=== PATIENT | male | born 1945 | race African-American/Black ===

== ENCOUNTER 2021-03-29 14:31 | Inpatient (IN) | payer MEDICARE, MEDICAID ==
[~2021-03-29] VITALS: Ht 175.3 cm; Wt 78.5 kg
[2021-03-29] MEDS ORDERED: SODIUM CHLORIDE 0.9% 500 ML IV ONE (16:30)
[2021-03-29 16:33] LABS: CHLORIDE 109 mEq/L (98-107)
[2021-03-29 16:37] LABS: BASOPHILS % 0.3 % (0.0-2.0); EOSINOPHILS % 3.3 % (0.0-5.0); HEMATOCRIT. 39.2 % (42.0-52.0); HEMOGLOBIN. 12.5 g/dL (14.0-18.0); LYMPHOCYTES % 43.4 % (20.0-50.0); MEAN CORPUSCULAR HEMOGLOBIN 29.8 pg (28.0-32.0); MEAN CORPUSCULAR VOLUME 93.4 fL (80.0-94.0); MEAN PLATELET VOLUME 9.8 fl (7.4-10.4); MONOCYTES % 11.3 % (2.0-8.0); NEUTROPHILS % 41.7 % (40.0-76.0); PLATELET 179 x1000/uL (130-400); RED BLOOD CELL COUNT 4.19 mill/uL (4.7-6.1); RED CELL DISTRIBUTION WIDTH 15.1 % (11.6-14.6)
[2021-03-29 16:38] LABS: PHOSPHORUS 2.9 mg/dL (2.5-4.9)
[2021-03-29] MEDS ORDERED: ACETAMINOPHEN 325MG TABLET PO PRN ×2 (21:15)
[2021-03-29] MEDS ORDERED: GUAIFENESIN 200MG/10ML SUGAR FREE UDC PO PRN (21:15)
[2021-03-29] MEDS ORDERED: TRAMADOL 50MG TABLET PO PRN (21:15)
[2021-03-29] MEDS ORDERED: HYDRALAZINE 20MG/ML VIAL IV PRN (21:15)
[2021-03-29] MEDS ORDERED: MAGNESIUM/ALUMINUM HYDROXIDE/SIMETHICONE 30ML UDC PO PRN (21:15)
[2021-03-29] MEDS ORDERED: ONDANSETRON HCL 4MG/2ML INJ IV PRN (21:15)
[2021-03-29 21:30] VITALS: BP 128/67
[2021-03-29] MEDS: ENOXAPARIN 40MG/0.4ML SYR SUBCUT SCH ×2 (22:00→22:34)
[2021-03-29] MEDS: SODIUM CHLORIDE 0.9% INJ 3ML FLUSH IVF SCH (22:34)
[2021-03-30] VITALS: BP 122/58
[2021-03-30] MEDS ORDERED: CLOP75TA33 PO (00:30)
[2021-03-30] MEDS ORDERED: LINA145C PO (00:32)
[2021-03-30] MEDS ORDERED: ISOS60TA76 PO (00:34)
[2021-03-30] MEDS ORDERED: PREG75CA PO (00:36)
[2021-03-30] MEDS ORDERED: CETI-338 PO (00:38)
[2021-03-30] MEDS ORDERED: COLC0.6C3 PO (00:38)
[2021-03-30] MEDS ORDERED: TAMS-11 PO (00:41)
[2021-03-30] MEDS ORDERED: CARV12.545 PO (00:44)
[2021-03-30] MEDS ORDERED: METF-414 PO (00:45)
[2021-03-30] MEDS ORDERED: ALBU6.7H9 INH (00:49)
[2021-03-30] MEDS ORDERED: FLUT1DIS3 INH (00:50)
[2021-03-30 04:00] VITALS: BP 118/50
[2021-03-30] MEDS: SODIUM CHLORIDE 0.9% INJ 3ML FLUSH IVF SCH ×3 (06:19→21:56)
[2021-03-30 08:00] VITALS: BP 147/70
[2021-03-30 12:00] VITALS: BP 160/77
[2021-03-30] MEDS ORDERED: NALOXONE HCL 0.4MG/ML VIAL IV PRN (15:00)
[2021-03-30 16:00] VITALS: BP 160/69
[2021-03-30] MEDS ORDERED: MAGNESIUM 2 G PREMIX 50 ML IV NR (17:00)
[2021-03-30 20:00] VITALS: BP 167/75
[2021-03-30] MEDS: ATORVASTATIN CALCIUM 40MG TABLET PO SCH (21:55)
[2021-03-30] MEDS: ENOXAPARIN 40MG/0.4ML SYR SUBCUT SCH (21:56)
[2021-03-31] VITALS (16 sets, daily range): BP systolic 101–148; BP diastolic 58–102
[2021-03-31] MEDS: SODIUM CHLORIDE 0.9% INJ 3ML FLUSH IVF SCH ×3 (05:57→22:12)
[2021-03-31] MEDS ORDERED: HEPARIN SODIUM 1,000 UNIT/1ML VIAL IV ONE (08:36)
[2021-03-31] MEDS ORDERED: IODIXANOL 320MG/ML 100 ML BOTTLE IV ONE (08:38)
[2021-03-31] MEDS ORDERED: LIDOCAINE HCL 1% 10 MG/ML 10ML VIAL ONE (08:38)
[2021-03-31] MEDS ORDERED: VERAPAMIL HCL 2.5 MG/1 ML 2ML VIAL IV ONE (08:49)
[2021-03-31] MEDS ORDERED: MIDAZOLAM HCL 2 MG/2 ML VIAL ONE (08:49)
[2021-03-31] MEDS ORDERED: FENTANYL CITRATE/PF 50MCG/ML 2ML VIAL ONE (08:49)
[2021-03-31] MEDS ORDERED: CLOPIDOGREL 75MG TABLET PO SCH (09:00)
[2021-03-31] MEDS ORDERED: ATROPINE SULFATE 1MG/10ML SYR IV PRN (10:00)
[2021-03-31] MEDS ORDERED: NITROGLYCERIN 0.4MG TABLET SL SL PRN (10:15)
[2021-03-31] MEDS ORDERED: ACETAMINOPHEN 325MG TABLET PO PRN (10:15)
[2021-03-31] MEDS ORDERED: FUROSEMIDE 40MG/4ML VIAL IVP NR (10:45)
[2021-03-31] MEDS: ASPIRIN 81MG TABLET PO SCH (11:04)
[2021-03-31] MEDS: AMLODIPINE 5MG TABLET PO SCH (11:05)
[2021-03-31] MEDS ORDERED: ENOXAPARIN 80MG/0.8ML SYR SUBCUT SCH (12:00)
[2021-03-31] MEDS ORDERED: MAGNESIUM 4 G PREMIX 100 ML IV NR (12:00)
[2021-03-31] MEDS ORDERED: EPOETIN ALFA-EPBX 10,000 UNIT/ML VIAL SUBCUT SCH (13:00)
[2021-03-31] MEDS ORDERED: DEXTROSE 50% WATER 50ML SYRINGE IV PRN (17:45)
[2021-03-31] MEDS ORDERED: DIPHENHYDRAMINE 25MG CAPSULE PO PRN (21:00)
[2021-03-31] MEDS ORDERED: BISACODYL 10MG SUPP PR PRN (21:00)
[2021-03-31] MEDS ORDERED: ASCORBIC ACID 500 MG TABLET PO SCH (21:00)
[2021-03-31] MEDS ORDERED: CHLORHEXIDINE GLUCONATE 4% EXTERNAL USE TOP SCH (21:00)
[2021-03-31] MEDS ORDERED: DOCUSATE SODIUM 100MG CAPSULE PO SCH (21:00)
[2021-03-31] MEDS: ALLOPURINOL 300 MG TABLET PO SCH (22:11)
[2021-03-31] MEDS: ATORVASTATIN CALCIUM 40MG TABLET PO SCH (22:11)
[2021-04-01] VITALS (35 sets, daily range): BP systolic 102–168; BP diastolic 43–84
[2021-04-01] MEDS: ALLOPURINOL 300 MG TABLET PO SCH (05:34)
[2021-04-01] MEDS: SODIUM CHLORIDE 0.9% INJ 3ML FLUSH IVF SCH ×3 (05:34→21:00)
[2021-04-01 05:35] LABS: CHLORIDE 101 mEq/L (98-107)
[2021-04-01] MEDS ORDERED: FUROSEMIDE 40MG/4ML VIAL IVP NR (06:00)
[2021-04-01 06:34] LABS: BASOPHILS % 0.2 % (0.0-2.0); EOSINOPHILS % 1.3 % (0.0-5.0); LYMPHOCYTES % 26.2 % (20.0-50.0); MEAN CORPUSCULAR HEMOGLOBIN 30.4 pg (28.0-32.0); MEAN CORPUSCULAR VOLUME 91.9 fL (80.0-94.0); MEAN PLATELET VOLUME 9.7 fl (7.4-10.4); MONOCYTES % 11.2 % (2.0-8.0); NEUTROPHILS % 61.1 % (40.0-76.0); PLATELET 183 x1000/uL (130-400); RED CELL DISTRIBUTION WIDTH 15.2 % (11.6-14.6)
[2021-04-01 06:48] LABS: HEMATOCRIT. 44.2 % (42.0-52.0); HEMOGLOBIN. 14.6 g/dL (14.0-18.0)
[2021-04-01] MEDS ORDERED: ALBUMIN HUMAN 25GM/100ML (25%) IV ONE (08:13)
[2021-04-01] MEDS ORDERED: POTASSIUM CHLORIDE 40MEQ/20ML INJ IV ONE (08:13)
[2021-04-01] MEDS ORDERED: HEPARIN 10,000 UNITS/ML VIAL ONE (08:13)
[2021-04-01] MEDS ORDERED: MAGNESIUM SULFATE 5GM/10ML VIAL IV ONE (08:13)
[2021-04-01] MEDS: ASPIRIN 81MG TABLET PO SCH ×2 (08:21→21:00)
[2021-04-01] MEDS: AMLODIPINE 5MG TABLET PO SCH (08:22)
[2021-04-01] MEDS ORDERED: ISOSORBIDE MONONITRATE 30MG TABLET SR 24HR PO SCH (09:00)
[2021-04-01] MEDS ORDERED: CHLORHEXIDINE GLUCONATE 4% EXTERNAL USE TOP SCH (09:00)
[2021-04-01] MEDS ORDERED: DOPAMINE 400MG/250ML PREMIX 0 ML IV ONE (10:11)
[2021-04-01] MEDS ORDERED: HEPARIN 1000 UNITS/ML 10ML ONE ×2 (10:39→14:26)
[2021-04-01] MEDS ORDERED: SKIN ADHESIVE 0.7 GM EA TOP ONE ×2 (10:44→10:45)
[2021-04-01] MEDS ORDERED: BACITRACIN 15GM TUBE TOP ONE (10:44)
[2021-04-01] MEDS ORDERED: THROMBIN (BOVINE) 5000 UNITS/VIAL TOP ONE (10:45)
[2021-04-01] MEDS ORDERED: POLYMYXIN B SULFATE 500000 UNITS/VIAL ONE (10:45)
[2021-04-01] MEDS ORDERED: SODIUM CHLORIDE 0.9% INJ 10ML FLUSH IVF ONE (10:45)
[2021-04-01] MEDS ORDERED: INSULIN REGULAR (DRIP) 100 UNITS in SODIUM CHLORIDE 0.9% 99 ML IV PRN (12:00)
[2021-04-01] MEDS ORDERED: PAPAVERINE HCL 180MG in SODIUM CHLORIDE 0.9% 24ML IV PRN (12:00)
[2021-04-01] MEDS ORDERED: DOBUTAMINE 250 MG PREMIX 250 ML IV PRN (12:00)
[2021-04-01] MEDS ORDERED: DEL NIDO ELECTROLYTE-S(PH 7.4) 1,000 ML IV PRN ×2 (12:00)
[2021-04-01] MEDS ORDERED: CEFAZOLIN 2,000 MG in DEXT 5% WATER 100 ML IV PRN (12:00)
[2021-04-01] MEDS ORDERED: DOPAMINE 400 MG PREMIX 250 ML IV PRN (12:00)
[2021-04-01] MEDS ORDERED: NOREPINEPHRINE 8 MG in DEXT 5% WATER 242 ML IV PRN (12:00)
[2021-04-01] MEDS ORDERED: NICARDIPINE 40 MG/200 ML PREMIX 200 ML IV PRN (12:00)
[2021-04-01] MEDS ORDERED: EPINEPHRINE 5 MG in DEXT 5% WATER 245 ML IV PRN (12:00)
[2021-04-01] MEDS ORDERED: CEFAZOLIN 2,000 MG in DEXT 5% WATER 100 ML IV SCH (12:00)
[2021-04-01 12:50] LABS: PARTIAL THROMBOPLASTIN TIME 31.3 sec (23.4-31.0); PROTHROMBIN TIME 10.8 sec (9.6-11.0)
[2021-04-01] MEDS ORDERED: HYDROMORPHONE HCL/PF 2MG/ML (OR) ONE (13:02)
[2021-04-01] MEDS ORDERED: FUROSEMIDE 100MG/10ML VIAL ONE (13:41)
[2021-04-01] MEDS ORDERED: CALCIUM CHLORIDE 1GM/10ML SYR IV ONE (13:42)
[2021-04-01] MEDS ORDERED: VASOPRESSIN 20 UNIT/ML 1ML ONE (13:44)
[2021-04-01] MEDS ORDERED: SODIUM CHLORIDE 0.9% 10ML VIAL ONE (14:32)
[2021-04-01] MEDS ORDERED: DEXMEDETOMIDINE 400 MCG/100 ML 100 ML IV ONE (16:00)
[2021-04-01] MEDS ORDERED: KETOROLAC 30MG/ML VIAL ONE (16:12)
[2021-04-01] MEDS ORDERED: ONDANSETRON HCL 4MG/2ML INJ IV PRN (16:15)
[2021-04-01] MEDS ORDERED: ACETAMINOPHEN 325MG TABLET PO PRN (16:15)
[2021-04-01] MEDS ORDERED: CALCIUM CHLORIDE 5,000 MG in DEXT 5% WATER 500 ML IV PRN (16:15)
[2021-04-01] MEDS ORDERED: CALCIUM CHLORIDE 3,000 MG in DEXT 5% WATER 250 ML IV PRN (16:15)
[2021-04-01] MEDS ORDERED: OXYCODONE HCL/ACETAMINOPHEN 5/325MG TABLET PO PRN ×2 (16:15)
[2021-04-01] MEDS ORDERED: ALBUMIN HUMAN 12.5G/250ML (5%) IV PRN (16:15)
[2021-04-01] MEDS ORDERED: ALBUMIN HUMAN 25GM/100ML (25%) IV PRN (16:15)
[2021-04-01] MEDS ORDERED: MORPHINE SULFATE 2 MG/ML CPJ (NOT FOR IM USE) IV PRN (16:15)
[2021-04-01] MEDS ORDERED: MAGNESIUM 2 G PREMIX 50 ML IV PRN (16:15)
[2021-04-01] MEDS ORDERED: MAGNESIUM SULFATE 3 GM in DEXT 5% WATER 100 ML IV PRN (16:15)
[2021-04-01] MEDS ORDERED: KETOROLAC 15MG/ML VIAL IV PRN (16:15)
[2021-04-01] MEDS ORDERED: MAGNESIUM 1 G PREMIX 100 ML IV PRN (16:15)
[2021-04-01] MEDS ORDERED: KCL 10MEQ/50ML PREMIX 100 ML IV PRN (16:30)
[2021-04-01] MEDS ORDERED: DEXTROSE 50% WATER 50ML SYRINGE IV PRN ×2 (16:30)
[2021-04-01] MEDS ORDERED: KCL 10MEQ/50ML PREMIX 200 ML IV PRN (16:30)
[2021-04-01] MEDS ORDERED: KCL 10MEQ/50ML PREMIX 150 ML IV PRN (16:30)
[2021-04-01 16:54] LABS: BG BASE EXCESS -1.7 mmol/L (-2.0-2.0); BG CARBOXYHEMOGLOBIN 0.3 % (0.5-1.5); BG DEOXYHEMOGLOBIN 5.8 % (0.0-5.0); BG FRACTION INSPIRED OXYGEN 100; BG HCO3 ACT 24.9 mmol/L (22.0-26.0); BG METHEMOGLOBIN 0.1 % (0.0-1.5); BG OXYGEN SATURATION 94.2 % (92.0-98.5); BG OXYHEMOGLOBIN 93.8 % (94.0-97.0); BG PCO2 50.2 mmHg (35.0-45.0); BG PH 7.313 (7.350-7.450); BG PO2 81.8 mmHg (75.0-100.0); BG SAMPLE SITE ALINE; BG TOTAL HEMOGLOBIN 11.6 g/dL (12.0-18.0); BG VENT MODE MASK - NRB
[2021-04-01] MEDS: DOCUSATE SODIUM 100MG CAPSULE PO SCH (17:00)
[2021-04-01] MEDS ORDERED: INSULIN REGULAR (DRIP) 100 UNITS in SODIUM CHLORIDE 0.9% 100 ML IV SCH (17:00)
[2021-04-01] MEDS: BACITRACIN 15GM TUBE TOP SCH (17:00)
[2021-04-01] MEDS ORDERED: DOPAMINE 400MG/250ML PREMIX 250 ML IV PRN (17:00)
[2021-04-01] MEDS: BLOOD SUGAR DIAGNOSTIC STRIP TEST SCH ×8 (17:00→23:58)
[2021-04-01] MEDS: MAGNESIUM HYDROXIDE 400MG/5ML 30ML UDC PO SCH ×3 (17:00→23:51)
[2021-04-01 17:14] LABS: BASOPHILS % 0.2 % (0.0-2.0); EOSINOPHILS % 0.3 % (0.0-5.0); HEMATOCRIT. 32.2 % (42.0-52.0); HEMOGLOBIN. 10.6 g/dL (14.0-18.0); LYMPHOCYTES % 13.7 % (20.0-50.0); MEAN CORPUSCULAR HEMOGLOBIN 30.3 pg (28.0-32.0); MEAN CORPUSCULAR VOLUME 92.4 fL (80.0-94.0); MEAN PLATELET VOLUME 8.8 fl (7.4-10.4); NEUTROPHILS % 80.8 % (40.0-76.0); PLATELET 130 x1000/uL (130-400); RED BLOOD CELL COUNT 3.48 mill/uL (4.7-6.1); RED CELL DISTRIBUTION WIDTH 14.9 % (11.6-14.6)
[2021-04-01 17:17] LABS: CHLORIDE 109 mEq/L (98-107)
[2021-04-01 17:23] LABS: PHOSPHORUS 3.9 mg/dL (2.5-4.9)
[2021-04-01 17:24] LABS: INR 1.2; PROTHROMBIN TIME 12.4 sec (9.6-11.0)
[2021-04-01] MEDS: DEXT 5%/0.45% NACL 1000ML 1,000 ML IV SCH (17:38)
[2021-04-01] MEDS ORDERED: AMINOCAPROIC ACID XX SCH (18:30)
[2021-04-01] MEDS ORDERED: [UNRECOGNIZED DRUG - OTHER] XX SCH (18:30)
[2021-04-01] MEDS ORDERED: AMINOCAPROIC ACID 5,000 MG in SODIUM CHLORIDE 0.9% 250 ML IV NR (19:00)
[2021-04-01] MEDS ORDERED: PROTAMINE SULFATE 10MG/ML VIAL 25ML IV NR (19:00)
[2021-04-01] MEDS ORDERED: AMINOCAPROIC ACID 5,000 MG in SODIUM CHLORIDE 0.9% 250 ML IV SCH (20:00)
[2021-04-01] MEDS: CEFAZOLIN 1000MG PREMIX 50 ML IV SCH (21:00)
[2021-04-01] MEDS: ATORVASTATIN CALCIUM 40MG TABLET PO SCH (21:00)
[2021-04-01] MEDS: CLOPIDOGREL 75MG TABLET PO SCH (21:00)
[2021-04-01] MEDS: IPRATROPIUM/ALBUTEROL 0.5-3(2.5)MG/3ML NEB HHN SCH (21:12)
[2021-04-01 23:16] LABS: BASOPHILS % 0.1 % (0.0-2.0); HEMOGLOBIN. 10.6 g/dL (14.0-18.0); LYMPHOCYTES % 8.7 % (20.0-50.0); MEAN CORPUSCULAR HEMOGLOBIN 30.7 pg (28.0-32.0); MEAN CORPUSCULAR VOLUME 92.4 fL (80.0-94.0); MEAN PLATELET VOLUME 9.5 fl (7.4-10.4); MONOCYTES % 7.9 % (2.0-8.0); NEUTROPHILS % 83.3 % (40.0-76.0); PLATELET 137 x1000/uL (130-400); RED BLOOD CELL COUNT 3.47 mill/uL (4.7-6.1); RED CELL DISTRIBUTION WIDTH 14.9 % (11.6-14.6)
[2021-04-01 23:21] LABS: CHLORIDE 106 mEq/L (98-107)
[2021-04-02] VITALS (88 sets, daily range): BP systolic 83–177; BP diastolic 32–104
[2021-04-02] MEDS: IPRATROPIUM/ALBUTEROL 0.5-3(2.5)MG/3ML NEB HHN SCH ×5 (00:38→20:59)
[2021-04-02] MEDS: BLOOD SUGAR DIAGNOSTIC STRIP TEST SCH ×19 (01:00→20:35)
[2021-04-02] MEDS: MAGNESIUM HYDROXIDE 400MG/5ML 30ML UDC PO SCH ×6 (04:21→23:24)
[2021-04-02 04:57] LABS: HEMATOCRIT. 31.7 % (42.0-52.0); HEMOGLOBIN. 10.6 g/dL (14.0-18.0); MEAN CORPUSCULAR HEMOGLOBIN 30.8 pg (28.0-32.0); MEAN CORPUSCULAR VOLUME 92.4 fL (80.0-94.0); MEAN PLATELET VOLUME 9.9 fl (7.4-10.4); PLATELET 141 x1000/uL (130-400); RED BLOOD CELL COUNT 3.43 mill/uL (4.7-6.1); RED CELL DISTRIBUTION WIDTH 14.7 % (11.6-14.6)
[2021-04-02 05:06] LABS: CHLORIDE 106 mEq/L (98-107)
[2021-04-02] MEDS: CEFAZOLIN 1000MG PREMIX 50 ML IV SCH ×2 (05:06→13:01)
[2021-04-02] MEDS: SODIUM CHLORIDE 0.9% INJ 3ML FLUSH IVF SCH ×3 (05:06→21:18)
[2021-04-02] MEDS ORDERED: MAGNESIUM 2 G PREMIX 50 ML IV NR (06:30)
[2021-04-02] MEDS ORDERED: FUROSEMIDE 40MG/4ML VIAL IVP SCH (06:30)
[2021-04-02] MEDS: ASPIRIN 81MG TABLET PO SCH (08:28)
[2021-04-02] MEDS: CLOPIDOGREL 75MG TABLET PO SCH (08:28)
[2021-04-02] MEDS: DOCUSATE SODIUM 100MG CAPSULE PO SCH ×2 (08:29→16:28)
[2021-04-02] MEDS: BACITRACIN 15GM TUBE TOP SCH ×2 (08:35→16:28)
[2021-04-02 11:03] LABS: PLATELET ESTIMATE NORMAL
[2021-04-02] MEDS: DEXT 5%/0.45% NACL 1000ML 1,000 ML IV SCH (16:29)
[2021-04-02] MEDS: INSULIN LISPRO 100 UNITS/ML SUBCUT SCH ×2 (17:29→20:35)
[2021-04-02] MEDS ORDERED: DEXTROSE 50% WATER 50ML SYRINGE IV PRN (17:30)
[2021-04-02] MEDS: ATORVASTATIN CALCIUM 40MG TABLET PO SCH (20:34)
[2021-04-03] VITALS (10 sets, daily range): BP systolic 109–135; BP diastolic 59–96
[2021-04-03] MEDS: IPRATROPIUM/ALBUTEROL 0.5-3(2.5)MG/3ML NEB HHN SCH ×6 (00:06→20:00)
[2021-04-03] MEDS: MAGNESIUM HYDROXIDE 400MG/5ML 30ML UDC PO SCH ×3 (04:00→12:00)
[2021-04-03] MEDS: SODIUM CHLORIDE 0.9% INJ 3ML FLUSH IVF SCH ×3 (05:13→21:00)
[2021-04-03] MEDS: BLOOD SUGAR DIAGNOSTIC STRIP TEST SCH ×4 (06:51→20:30)
[2021-04-03] MEDS: INSULIN LISPRO 100 UNITS/ML SUBCUT SCH ×4 (07:20→20:30)
[2021-04-03] MEDS: DOCUSATE SODIUM 100MG CAPSULE PO SCH ×2 (08:12→17:00)
[2021-04-03] MEDS: CLOPIDOGREL 75MG TABLET PO SCH (08:26)
[2021-04-03] MEDS: ASPIRIN 81MG TABLET PO SCH (08:26)
[2021-04-03] MEDS: BACITRACIN 15GM TUBE TOP SCH ×2 (08:27→17:00)
[2021-04-03 08:30] LABS: BASOPHILS % 0.1 % (0.0-2.0); EOSINOPHILS % 0.2 % (0.0-5.0); HEMATOCRIT. 32.6 % (42.0-52.0); HEMOGLOBIN. 10.9 g/dL (14.0-18.0); LYMPHOCYTES % 16.3 % (20.0-50.0); MEAN CORPUSCULAR HEMOGLOBIN 31.1 pg (28.0-32.0); MEAN PLATELET VOLUME 10.4 fl (7.4-10.4); MONOCYTES % 11.9 % (2.0-8.0); NEUTROPHILS % 71.5 % (40.0-76.0); PLATELET 140 x1000/uL (130-400); RED BLOOD CELL COUNT 3.51 mill/uL (4.7-6.1); RED CELL DISTRIBUTION WIDTH 15.4 % (11.6-14.6)
[2021-04-03 09:12] LABS: CHLORIDE 101 mEq/L (98-107)
[2021-04-03] MEDS ORDERED: HALOPERIDOL LACTATE 5MG/ML VIAL IM PRN (12:45)
[2021-04-03] MEDS: DEXT 5%/0.45% NACL 1000ML 1,000 ML IV SCH (18:40)
[2021-04-03] MEDS: ATORVASTATIN CALCIUM 40MG TABLET PO SCH (20:30)
[2021-04-04] VITALS (10 sets, daily range): BP systolic 104–158; BP diastolic 56–94
[2021-04-04] MEDS: IPRATROPIUM/ALBUTEROL 0.5-3(2.5)MG/3ML NEB HHN SCH ×6 (00:48→21:02)
[2021-04-04] MEDS: BLOOD SUGAR DIAGNOSTIC STRIP TEST SCH ×4 (06:26→20:27)
[2021-04-04] MEDS: SODIUM CHLORIDE 0.9% INJ 3ML FLUSH IVF SCH ×3 (06:26→21:35)
[2021-04-04] MEDS: INSULIN LISPRO 100 UNITS/ML SUBCUT SCH ×4 (07:20→20:27)
[2021-04-04 08:33] LABS: BASOPHILS % 0.3 % (0.0-2.0); EOSINOPHILS % 0.8 % (0.0-5.0); HEMATOCRIT. 35.3 % (42.0-52.0); HEMOGLOBIN. 11.5 g/dL (14.0-18.0); LYMPHOCYTES % 21.8 % (20.0-50.0); MEAN CORPUSCULAR HEMOGLOBIN 30.4 pg (28.0-32.0); MEAN PLATELET VOLUME 9.7 fl (7.4-10.4); MONOCYTES % 13.8 % (2.0-8.0); NEUTROPHILS % 63.3 % (40.0-76.0); PLATELET 151 x1000/uL (130-400); RED BLOOD CELL COUNT 3.79 mill/uL (4.7-6.1); RED CELL DISTRIBUTION WIDTH 15.6 % (11.6-14.6)
[2021-04-04] MEDS: CLOPIDOGREL 75MG TABLET PO SCH (08:48)
[2021-04-04] MEDS: DOCUSATE SODIUM 100MG CAPSULE PO SCH ×2 (08:48→17:19)
[2021-04-04] MEDS: BACITRACIN 15GM TUBE TOP SCH ×2 (08:48→17:20)
[2021-04-04] MEDS: ASPIRIN 81MG TABLET PO SCH (08:48)
[2021-04-04 08:52] LABS: CHLORIDE 106 mEq/L (98-107)
[2021-04-04] MEDS ORDERED: AMIODARONE HCL 50MG/ML 3ML VIAL IV ONE (12:45)
[2021-04-04] MEDS ORDERED: AMIODARONE HCL 50MG/ML 9ML VIAL IV ONE (12:45)
[2021-04-04] MEDS ORDERED: MAGNESIUM 4 G PREMIX 100 ML IV NR (13:30)
[2021-04-04] MEDS ORDERED: AMIODARONE HCL 900 MG in DEXT 5% WATER 500 ML IV PRN (13:30)
[2021-04-04] MEDS ORDERED: AMIODARONE HCL 150 MG in DEXT 5% WATER 100 ML IV NR (13:30)
[2021-04-04] MEDS: AMIODARONE HCL 200 MG TABLET PO SCH ×2 (14:02→17:19)
[2021-04-04] MEDS: DEXT 5%/0.45% NACL 1000ML 1,000 ML IV SCH (18:08)
[2021-04-04] MEDS: ATORVASTATIN CALCIUM 40MG TABLET PO SCH (20:27)
[2021-04-05] VITALS (11 sets, daily range): BP systolic 115–135; BP diastolic 45–86
[2021-04-05] MEDS: IPRATROPIUM/ALBUTEROL 0.5-3(2.5)MG/3ML NEB HHN SCH ×6 (01:01→20:43)
[2021-04-05] MEDS: SODIUM CHLORIDE 0.9% INJ 3ML FLUSH IVF SCH ×3 (05:18→21:03)
[2021-04-05] MEDS: BLOOD SUGAR DIAGNOSTIC STRIP TEST SCH ×4 (06:15→20:48)
[2021-04-05] MEDS: INSULIN LISPRO 100 UNITS/ML SUBCUT SCH ×4 (07:20→20:48)
[2021-04-05] MEDS: AMIODARONE HCL 200 MG TABLET PO SCH ×2 (08:08→16:17)
[2021-04-05] MEDS: CLOPIDOGREL 75MG TABLET PO SCH (08:08)
[2021-04-05] MEDS: ASPIRIN 81MG TABLET PO SCH (08:08)
[2021-04-05] MEDS: DOCUSATE SODIUM 100MG CAPSULE PO SCH ×2 (08:08→16:17)
[2021-04-05] MEDS: BACITRACIN 15GM TUBE TOP SCH ×2 (08:09→16:18)
[2021-04-05] MEDS: ATORVASTATIN CALCIUM 40MG TABLET PO SCH (20:49)
== END 2021-04-05 21:48 | DRG 234 ==
LOC: ER 14:37 → 8WST 18:37 → ENRESERV 20:36 → 3WST 03-31 10:51 → CVICU 04-01 14:48 → 3WST 04-02 18:49
PROVIDERS: ADMIT Internal Medicine; ATTEND Internal Medicine
PROC: 4A023N7 Measurement of Cardiac Sampling and Pressure, Left Heart, Percutaneous Approach (ICD-10-PCS; principal; 2021-03-31)
PROC: B211YZZ Fluoroscopy of Multiple Coronary Arteries using Other Contrast (ICD-10-PCS; 2021-03-31)
PROC: 06BQ4ZZ Excision of Left Saphenous Vein, Percutaneous Endoscopic Approach (ICD-10-PCS; 2021-04-01)
PROC: 02100Z9 Bypass Coronary Artery, One Artery from Left Internal Mammary, Open Approach (ICD-10-PCS; 2021-04-01)
PROC: 021209W Bypass Coronary Artery, Three Arteries from Aorta with Autologous Venous Tissue, Open Approach (ICD-10-PCS; 2021-04-01)
DX: T82.855A Stenosis of coronary artery stent, initial encounter (principal); I25.110 Atherosclerotic heart disease of native coronary artery with unstable angina pectoris; I50.30 Unspecified diastolic (congestive) heart failure; I44.1 Atrioventricular block, second degree; D72.819 Decreased white blood cell count, unspecified; E11.9 Type 2 diabetes mellitus without complications; M06.9 Rheumatoid arthritis, unspecified; I11.0 Hypertensive heart disease with heart failure; I48.0 Paroxysmal atrial fibrillation; R00.1 Bradycardia, unspecified; M19.90 Unspecified osteoarthritis, unspecified site; G89.29 Other chronic pain; M54.50 Low back pain, unspecified; Z60.2 Problems related to living alone; Z20.822 Contact with and (suspected) exposure to COVID-19; Y83.1 Surgical operation with implant of artificial internal device as the cause of abnormal reaction of the patient, or of later complication, without mention of misadventure at the time of the procedure; Y92.89 Other specified places as the place of occurrence of the external cause; Z79.84 Long term (current) use of oral hypoglycemic drugs; Z86.73 Personal history of transient ischemic attack (TIA), and cerebral infarction without residual deficits; Z95.5 Presence of coronary angioplasty implant and graft; Z79.899 Other long term (current) drug therapy; Z28.3 Underimmunization status; Z79.82 Long term (current) use of aspirin; Z87.891 Personal history of nicotine dependence; G90.9 Disorder of the autonomic nervous system, unspecified
CPT/HCPCS: 36415; 36600; 71045; 80048; 82375; 82805; 82962; 83036; 83735; 84100; 84443; 84484; 85025; 85347; 86850; 86900; 86920; 87426; 88305; 93005; 93306; 93458; 93880; 93970; 97110; 97116; 97162; 97166; 97530; 97535; 99285; C1729; C1751; C1758; C1769; C1887; C1893; J0282; J0360; J0690; J0885; J1170; J1265; J1630; J1644; J1650; J1815; J1885; J1940; J2250; J2720; J3010; J3475; J3480; J3490; J7040; J7050; J7060; L3908; P9016; P9047; Q9957; Q9967

== ENCOUNTER 2021-04-05 21:48 | Inpatient (IN) | payer MEDICARE, MEDICAID ==
[~2021-04-05] VITALS: Ht 175.3 cm; Wt 81.4 kg
[~2021-04-05 21:48] MED LIST: ALBU6.7H9 INH; CARV12.545 PO; CETI-338 PO; CLOP75TA33 PO; COLC0.6C3 PO; FLUT1DIS3 INH; ISOS60TA76 PO; LINA145C PO; METF-414 PO; PREG75CA PO; TAMS-11 PO
[2021-04-05 21:55] VITALS: BP 130/76
[2021-04-05] MEDS ORDERED: HYDRALAZINE HCL 10MG TABLET PO PRN (22:45)
[2021-04-05] MEDS ORDERED: ONDANSETRON HCL 4MG TABLET PO PRN (22:45)
[2021-04-05] MEDS ORDERED: OXYCODONE HCL/ACETAMINOPHEN 5/325MG TABLET PO PRN (22:45)
[2021-04-05] MEDS ORDERED: NITROGLYCERIN 0.4MG TABLET SL SL PRN (22:45)
[2021-04-05] MEDS ORDERED: GUAIFENESIN 200MG/10ML SUGAR FREE UDC PO PRN (22:45)
[2021-04-05] MEDS ORDERED: HALOPERIDOL LACTATE 5MG/ML VIAL IM PRN (22:45)
[2021-04-05] MEDS ORDERED: NALOXONE HCL 0.4 MG/ML 1ML VIAL IV PRN (22:45)
[2021-04-06] MEDS: IPRATROPIUM/ALBUTEROL 0.5-3(2.5)MG/3ML NEB HHN SCH ×4 (02:58→22:12)
[2021-04-06] MEDS: INSULIN LISPRO 100 UNITS/ML SUBCUT SCH ×4 (06:28→20:55)
[2021-04-06] MEDS: BLOOD SUGAR DIAGNOSTIC STRIP TEST SCH ×4 (06:28→20:55)
[2021-04-06 08:00] VITALS: BP 122/59
[2021-04-06 09:26] VITALS: BP 122/59
[2021-04-06] MEDS: DOCUSATE SODIUM 100MG CAPSULE PO SCH ×2 (09:28→17:14)
[2021-04-06] MEDS: CLOPIDOGREL 75MG TABLET PO SCH (09:29)
[2021-04-06] MEDS: ASPIRIN 81MG TABLET PO SCH (09:29)
[2021-04-06] MEDS: AMIODARONE HCL 200 MG TABLET PO SCH ×2 (09:29→17:14)
[2021-04-06] MEDS: BACITRACIN 15GM TUBE TOP SCH ×2 (09:40→17:31)
[2021-04-06] MEDS: DEXTROSE 50% WATER 50ML SYRINGE IV PRN ×3 (18:08→21:00)
[2021-04-06 20:00] VITALS: BP 117/66
[2021-04-06] MEDS: ATORVASTATIN CALCIUM 40MG TABLET PO SCH (20:15)
[2021-04-07] MEDS: IPRATROPIUM/ALBUTEROL 0.5-3(2.5)MG/3ML NEB HHN SCH ×6 (01:23→21:42)
[2021-04-07] MEDS: BLOOD SUGAR DIAGNOSTIC STRIP TEST SCH ×4 (06:19→21:36)
[2021-04-07] MEDS: INSULIN LISPRO 100 UNITS/ML SUBCUT SCH ×4 (06:19→21:00)
[2021-04-07 08:00] VITALS: BP 125/88
[2021-04-07] MEDS: ASPIRIN 81MG TABLET PO SCH (09:42)
[2021-04-07] MEDS: DOCUSATE SODIUM 100MG CAPSULE PO SCH ×2 (09:43→18:20)
[2021-04-07] MEDS: CLOPIDOGREL 75MG TABLET PO SCH (09:43)
[2021-04-07] MEDS: AMIODARONE HCL 200 MG TABLET PO SCH ×2 (09:43→18:21)
[2021-04-07] MEDS: BACITRACIN 15GM TUBE TOP SCH ×2 (09:46→18:21)
[2021-04-07 20:00] VITALS: BP 134/55
[2021-04-07] MEDS ORDERED: SENNOSIDES 8.6MG TABLET PO PRN (21:00)
[2021-04-07] MEDS: ATORVASTATIN CALCIUM 40MG TABLET PO SCH (21:35)
[2021-04-07] MEDS: ACETAMINOPHEN 325MG TABLET PO PRN (21:55)
[2021-04-08] MEDS: IPRATROPIUM/ALBUTEROL 0.5-3(2.5)MG/3ML NEB HHN SCH ×5 (02:27→21:32)
[2021-04-08] MEDS: BLOOD SUGAR DIAGNOSTIC STRIP TEST SCH ×4 (05:34→20:31)
[2021-04-08] MEDS: INSULIN LISPRO 100 UNITS/ML SUBCUT SCH ×4 (05:35→20:31)
[2021-04-08 08:00] VITALS: BP 122/65
[2021-04-08] MEDS: BACITRACIN 15GM TUBE TOP SCH ×2 (09:00→17:00)
[2021-04-08] MEDS: ASPIRIN 81MG TABLET PO SCH (09:15)
[2021-04-08] MEDS: DOCUSATE SODIUM 100MG CAPSULE PO SCH ×2 (09:16→16:10)
[2021-04-08] MEDS: AMIODARONE HCL 200 MG TABLET PO SCH ×2 (09:16→16:10)
[2021-04-08] MEDS: CLOPIDOGREL 75MG TABLET PO SCH (09:16)
[2021-04-08 20:00] VITALS: BP 105/64
[2021-04-08] MEDS: ATORVASTATIN CALCIUM 40MG TABLET PO SCH (20:51)
[2021-04-09] MEDS: IPRATROPIUM/ALBUTEROL 0.5-3(2.5)MG/3ML NEB HHN SCH ×5 (00:44→21:14)
[2021-04-09] MEDS: BLOOD SUGAR DIAGNOSTIC STRIP TEST SCH ×4 (06:24→21:00)
[2021-04-09] MEDS: INSULIN LISPRO 100 UNITS/ML SUBCUT SCH ×4 (06:24→21:00)
[2021-04-09] MEDS: OXYCODONE HCL/ACETAMINOPHEN 5/325MG TABLET PO PRN (06:55)
[2021-04-09 07:22] LABS: CHLORIDE 107 mEq/L (98-107)
[2021-04-09 07:29] LABS: BASOPHILS % 0.4 % (0.0-2.0); EOSINOPHILS % 3.4 % (0.0-5.0); HEMATOCRIT. 30.7 % (42.0-52.0); HEMOGLOBIN. 10.3 g/dL (14.0-18.0); LYMPHOCYTES % 33.4 % (20.0-50.0); MEAN CORPUSCULAR HEMOGLOBIN 31.1 pg (28.0-32.0); MEAN PLATELET VOLUME 8.1 fl (7.4-10.4); MONOCYTES % 10.8 % (2.0-8.0); PLATELET 277 x1000/uL (130-400); RED CELL DISTRIBUTION WIDTH 15.1 % (11.6-14.6)
[2021-04-09 08:00] VITALS: BP 114/66
[2021-04-09] MEDS: DOCUSATE SODIUM 100MG CAPSULE PO SCH ×2 (09:22→18:01)
[2021-04-09] MEDS: ASPIRIN 81MG TABLET PO SCH (09:22)
[2021-04-09] MEDS: CLOPIDOGREL 75MG TABLET PO SCH (09:22)
[2021-04-09] MEDS: AMIODARONE HCL 200 MG TABLET PO SCH ×2 (09:22→18:01)
[2021-04-09] MEDS: BACITRACIN 15GM TUBE TOP SCH ×2 (09:23→18:01)
[2021-04-09 20:00] VITALS: BP 131/69
[2021-04-09] MEDS: ATORVASTATIN CALCIUM 40MG TABLET PO SCH (21:58)
[2021-04-10] MEDS: IPRATROPIUM/ALBUTEROL 0.5-3(2.5)MG/3ML NEB HHN SCH ×5 (02:40→22:00)
[2021-04-10] MEDS: BLOOD SUGAR DIAGNOSTIC STRIP TEST SCH ×4 (06:30→21:48)
[2021-04-10 08:00] VITALS: BP 126/64
[2021-04-10] MEDS: BACITRACIN 15GM TUBE TOP SCH ×2 (08:41→17:36)
[2021-04-10] MEDS: CLOPIDOGREL 75MG TABLET PO SCH (08:42)
[2021-04-10] MEDS: AMIODARONE HCL 200 MG TABLET PO SCH ×2 (08:42→17:36)
[2021-04-10] MEDS: ASPIRIN 81MG TABLET PO SCH (08:42)
[2021-04-10] MEDS: DOCUSATE SODIUM 100MG CAPSULE PO SCH ×2 (08:42→17:36)
[2021-04-10] MEDS: INSULIN LISPRO 100 UNITS/ML SUBCUT SCH ×4 (08:46→21:00)
[2021-04-10] MEDS: LACTULOSE 20G/30ML UDC PO PRN (13:46)
[2021-04-10] MEDS: DEXTROSE 50% WATER 50ML SYRINGE IV PRN (18:22)
[2021-04-10 20:00] VITALS: BP 114/55
[2021-04-10] MEDS ORDERED: OXYCODONE HCL/ACETAMINOPHEN 5/325MG TABLET PO PRN ×2 (20:00)
[2021-04-10] MEDS: ATORVASTATIN CALCIUM 40MG TABLET PO SCH (21:20)
[2021-04-11] MEDS: IPRATROPIUM/ALBUTEROL 0.5-3(2.5)MG/3ML NEB HHN SCH ×3 (02:50→21:20)
[2021-04-11] MEDS: LACTULOSE 20G/30ML UDC PO PRN (05:29)
[2021-04-11] MEDS: BLOOD SUGAR DIAGNOSTIC STRIP TEST SCH ×4 (06:28→21:49)
[2021-04-11] MEDS: INSULIN LISPRO 100 UNITS/ML SUBCUT SCH ×4 (06:29→21:00)
[2021-04-11 08:00] VITALS: BP 103/49
[2021-04-11] MEDS: ASPIRIN 81MG TABLET PO SCH (09:05)
[2021-04-11] MEDS: CLOPIDOGREL 75MG TABLET PO SCH (09:06)
[2021-04-11] MEDS: DOCUSATE SODIUM 100MG CAPSULE PO SCH ×2 (09:06→17:06)
[2021-04-11] MEDS: AMIODARONE HCL 200 MG TABLET PO SCH ×2 (09:06→17:06)
[2021-04-11] MEDS: BACITRACIN 15GM TUBE TOP SCH ×2 (09:11→18:00)
[2021-04-11] MEDS: DEXTROSE 50% WATER 50ML SYRINGE IV PRN (17:19)
[2021-04-11 20:00] VITALS: BP 143/66
[2021-04-11] MEDS: ATORVASTATIN CALCIUM 40MG TABLET PO SCH (21:49)
[2021-04-12] MEDS: IPRATROPIUM/ALBUTEROL 0.5-3(2.5)MG/3ML NEB HHN SCH ×5 (00:54→21:24)
[2021-04-12] MEDS: BLOOD SUGAR DIAGNOSTIC STRIP TEST SCH ×3 (06:55→17:14)
[2021-04-12 08:00] VITALS: BP 116/74
[2021-04-12] MEDS: BACITRACIN 15GM TUBE TOP SCH ×2 (09:00→17:13)
[2021-04-12] MEDS: INSULIN LISPRO 100 UNITS/ML SUBCUT SCH ×3 (09:00→17:00)
[2021-04-12] MEDS: ASPIRIN 81MG TABLET PO SCH (10:27)
[2021-04-12] MEDS: DOCUSATE SODIUM 100MG CAPSULE PO SCH ×2 (10:28→17:00)
[2021-04-12] MEDS: CLOPIDOGREL 75MG TABLET PO SCH (10:28)
[2021-04-12] MEDS: AMIODARONE HCL 200 MG TABLET PO SCH ×2 (10:28→17:13)
[2021-04-12 20:00] VITALS: BP 119/43
[2021-04-12] MEDS: ATORVASTATIN CALCIUM 40MG TABLET PO SCH (22:12)
[2021-04-13] MEDS: IPRATROPIUM/ALBUTEROL 0.5-3(2.5)MG/3ML NEB HHN SCH ×4 (01:01→11:01)
[2021-04-13 08:00] VITALS: BP 135/73
[2021-04-13] MEDS: AMIODARONE HCL 200 MG TABLET PO SCH ×2 (09:25→16:44)
[2021-04-13] MEDS: DOCUSATE SODIUM 100MG CAPSULE PO SCH ×2 (09:25→16:44)
[2021-04-13] MEDS: CLOPIDOGREL 75MG TABLET PO SCH (09:25)
[2021-04-13] MEDS: ASPIRIN 81MG TABLET PO SCH (09:25)
[2021-04-13] MEDS: BACITRACIN 15GM TUBE TOP SCH ×2 (09:26→16:49)
[2021-04-13 20:00] VITALS: BP 138/64
[2021-04-13] MEDS: ATORVASTATIN CALCIUM 40MG TABLET PO SCH (21:35)
[2021-04-14 08:00] VITALS: BP 125/67
[2021-04-14] MEDS: CLOPIDOGREL 75MG TABLET PO SCH (09:38)
[2021-04-14] MEDS: ASPIRIN 81MG TABLET PO SCH (09:38)
[2021-04-14] MEDS: DOCUSATE SODIUM 100MG CAPSULE PO SCH ×2 (09:38→16:38)
[2021-04-14] MEDS: OXYCODONE HCL/ACETAMINOPHEN 5/325MG TABLET PO PRN (09:40)
[2021-04-14] MEDS: AMIODARONE HCL 200 MG TABLET PO SCH ×2 (09:40→16:38)
[2021-04-14] MEDS: BACITRACIN 15GM TUBE TOP SCH ×2 (09:41→16:41)
[2021-04-14 20:00] VITALS: BP 126/66
[2021-04-14] MEDS: IPRATROPIUM/ALBUTEROL 0.5-3(2.5)MG/3ML NEB HHN SCH (20:58)
[2021-04-14] MEDS: ATORVASTATIN CALCIUM 40MG TABLET PO SCH (21:47)
[2021-04-15] MEDS: IPRATROPIUM/ALBUTEROL 0.5-3(2.5)MG/3ML NEB HHN SCH ×4 (02:25→19:57)
[2021-04-15 08:00] VITALS: BP 117/63
[2021-04-15] MEDS: ASPIRIN 81MG TABLET PO SCH (08:57)
[2021-04-15] MEDS: AMIODARONE HCL 200 MG TABLET PO SCH ×2 (08:58→17:23)
[2021-04-15] MEDS: CLOPIDOGREL 75MG TABLET PO SCH (08:58)
[2021-04-15] MEDS: BACITRACIN 15GM TUBE TOP SCH ×2 (09:00→17:23)
[2021-04-15] MEDS: OXYCODONE HCL/ACETAMINOPHEN 5/325MG TABLET PO PRN (09:01)
[2021-04-15] MEDS: DOCUSATE SODIUM 100MG CAPSULE PO SCH ×2 (09:01→17:23)
[2021-04-15 20:00] VITALS: BP 129/60
[2021-04-15] MEDS: ATORVASTATIN CALCIUM 40MG TABLET PO SCH (21:06)
[2021-04-16] MEDS: IPRATROPIUM/ALBUTEROL 0.5-3(2.5)MG/3ML NEB HHN SCH ×3 (07:34→21:35)
[2021-04-16 08:19] VITALS: BP 132/71
[2021-04-16] MEDS: ASPIRIN 81MG TABLET PO SCH (10:38)
[2021-04-16] MEDS: AMIODARONE HCL 200 MG TABLET PO SCH ×2 (10:39→16:22)
[2021-04-16] MEDS: DOCUSATE SODIUM 100MG CAPSULE PO SCH ×2 (10:39→16:22)
[2021-04-16] MEDS: CLOPIDOGREL 75MG TABLET PO SCH (10:39)
[2021-04-16] MEDS: MAGNESIUM/ALUMINUM HYDROXIDE/SIMETHICONE 30ML UDC PO PRN (10:39)
[2021-04-16] MEDS: BACITRACIN 15GM TUBE TOP SCH ×2 (12:02→16:22)
[2021-04-16] MEDS: LACTULOSE 20G/30ML UDC PO PRN (16:23)
[2021-04-16 20:00] VITALS: BP 135/57
[2021-04-16] MEDS: ATORVASTATIN CALCIUM 40MG TABLET PO SCH (20:49)
[2021-04-17 08:00] VITALS: BP 137/68
[2021-04-17] MEDS: IPRATROPIUM/ALBUTEROL 0.5-3(2.5)MG/3ML NEB HHN SCH ×2 (08:00→14:00)
[2021-04-17] MEDS: ASPIRIN 81MG TABLET PO SCH (09:23)
[2021-04-17] MEDS: DOCUSATE SODIUM 100MG CAPSULE PO SCH ×2 (09:23→16:11)
[2021-04-17] MEDS: MAGNESIUM/ALUMINUM HYDROXIDE/SIMETHICONE 30ML UDC PO PRN (09:24)
[2021-04-17] MEDS: CLOPIDOGREL 75MG TABLET PO SCH (09:24)
[2021-04-17] MEDS: AMIODARONE HCL 200 MG TABLET PO SCH ×2 (09:24→16:11)
[2021-04-17] MEDS: ACETAMINOPHEN 325MG TABLET PO PRN (09:25)
[2021-04-17] MEDS: BACITRACIN 15GM TUBE TOP SCH ×2 (11:49→16:12)
[2021-04-17 20:00] VITALS: BP 125/66
[2021-04-17] MEDS: ATORVASTATIN CALCIUM 40MG TABLET PO SCH (20:06)
[2021-04-18] MEDS: IPRATROPIUM/ALBUTEROL 0.5-3(2.5)MG/3ML NEB HHN SCH ×2 (07:13→12:26)
[2021-04-18 08:00] VITALS: BP 116/51
[2021-04-18] MEDS: MAGNESIUM/ALUMINUM HYDROXIDE/SIMETHICONE 30ML UDC PO PRN (09:35)
[2021-04-18] MEDS: CLOPIDOGREL 75MG TABLET PO SCH (09:35)
[2021-04-18] MEDS: DOCUSATE SODIUM 100MG CAPSULE PO SCH (09:35)
[2021-04-18] MEDS: AMIODARONE HCL 200 MG TABLET PO SCH (09:35)
[2021-04-18] MEDS: ASPIRIN 81MG TABLET PO SCH (09:35)
[2021-04-18] MEDS: BACITRACIN 15GM TUBE TOP SCH (11:15)
[2021-04-18 13:39] VITALS: BP 116/51
== END 2021-04-18 14:55 | disposition home health service (06) | DRG 293 ==
LOC: 4WST 21:48
PROVIDERS: ADMIT Psychiatry & Neurology Neurology; ATTEND Internal Medicine
DX: I11.0 Hypertensive heart disease with heart failure (principal); I25.10 Atherosclerotic heart disease of native coronary artery without angina pectoris; M06.9 Rheumatoid arthritis, unspecified; I48.0 Paroxysmal atrial fibrillation; I50.30 Unspecified diastolic (congestive) heart failure; E11.9 Type 2 diabetes mellitus without complications; G89.29 Other chronic pain; M54.50 Low back pain, unspecified; F06.34 Mood disorder due to known physiological condition with mixed features; R00.1 Bradycardia, unspecified; G90.8 Other disorders of autonomic nervous system; M13.0 Polyarthritis, unspecified; Z95.1 Presence of aortocoronary bypass graft; Z95.5 Presence of coronary angioplasty implant and graft; Z79.899 Other long term (current) drug therapy; Z79.51 Long term (current) use of inhaled steroids; Z79.84 Long term (current) use of oral hypoglycemic drugs; I69.398 Other sequelae of cerebral infarction
CPT/HCPCS: 36415; 80053; 82962; 85025; 92523; 93970; 94640; 97110; 97112; 97116; 97150; 97162; 97166; 97530; 97535

== ENCOUNTER 2021-07-08 17:00 | Inpatient (IN) | payer MEDICARE, MEDICAID ==
[~2021-07-08] VITALS: Ht 175.3 cm; Wt 74.6 kg
[2021-07-08] MEDS ORDERED: SODIUM CHLORIDE 0.9% 1,000 ML IV ONE (17:45)
[2021-07-08 18:15] LABS: BASOPHILS % 0.7 % (0.0-2.0); EOSINOPHILS % 5.3 % (0.0-5.0); HEMATOCRIT. 37.2 % (42.0-52.0); HEMOGLOBIN. 12.2 g/dL (14.0-18.0); LYMPHOCYTES % 42.9 % (20.0-50.0); MEAN CORPUSCULAR HEMOGLOBIN 28.6 pg (28.0-32.0); MEAN CORPUSCULAR VOLUME 87.5 fL (80.0-94.0); MONOCYTES % 11.4 % (2.0-8.0); NEUTROPHILS % 39.7 % (40.0-76.0); PLATELET 219 x1000/uL (130-400); RED BLOOD CELL COUNT 4.25 mill/uL (4.7-6.1); RED CELL DISTRIBUTION WIDTH 18.6 % (11.6-14.6)
[2021-07-08 18:22] LABS: CHLORIDE 108 mEq/L (98-107)
[2021-07-08 18:26] LABS: PARTIAL THROMBOPLASTIN TIME 31.5 sec (23.4-31.0); PROTHROMBIN TIME 11.1 sec (9.6-11.0)
[2021-07-08] MEDS ORDERED: DIPHENHYDRAMINE 50MG/ML VIAL IV PRN (19:00)
[2021-07-08] MEDS ORDERED: ACETAMINOPHEN 325MG TABLET PO PRN ×2 (19:00)
[2021-07-08] MEDS ORDERED: ZOLPIDEM TARTRATE 5MG TABLET PO PRN (19:00)
[2021-07-08] MEDS ORDERED: MAGNESIUM/ALUMINUM HYDROXIDE/SIMETHICONE 30ML UDC PO PRN (19:00)
[2021-07-08] MEDS ORDERED: ONDANSETRON HCL 4MG/2ML INJ IV PRN (19:00)
[2021-07-08] MEDS ORDERED: IPRATROPIUM/ALBUTEROL 0.5-3(2.5)MG/3ML NEB HHN PRN (19:00)
[2021-07-08] MEDS ORDERED: GUAIFENESIN 200MG/10ML SUGAR FREE UDC PO PRN (19:00)
[2021-07-08] MEDS ORDERED: MAGNESIUM HYDROXIDE 400MG/5ML 30ML UDC PO PRN (19:00)
[2021-07-08] MEDS: ATORVASTATIN CALCIUM 40MG TABLET PO SCH (21:00)
[2021-07-08] MEDS: SODIUM CHLORIDE 0.9% INJ 3ML FLUSH IVF SCH (22:09)
[2021-07-09] VITALS (10 sets, daily range): BP systolic 90–164; BP diastolic 65–88
[2021-07-09] MEDS: HYDRALAZINE 20MG/ML VIAL IV PRN (00:41)
[2021-07-09] MEDS ORDERED: GABA-529 PO (03:47)
[2021-07-09] MEDS: SODIUM CHLORIDE 0.9% INJ 3ML FLUSH IVF SCH ×3 (05:27→21:37)
[2021-07-09] MEDS: DOCUSATE SODIUM 100MG CAPSULE PO SCH ×2 (09:00→17:30)
[2021-07-09] MEDS ORDERED: ENOXAPARIN 40MG/0.4ML SYR SUBCUT NR (17:30)
[2021-07-09] MEDS: ATORVASTATIN CALCIUM 40MG TABLET PO SCH (21:37)
[2021-07-10] VITALS (12 sets, daily range): BP systolic 108–167; BP diastolic 54–94
[2021-07-10] MEDS: SODIUM CHLORIDE 0.9% INJ 3ML FLUSH IVF SCH ×4 (05:02→22:08)
[2021-07-10] MEDS: DOCUSATE SODIUM 100MG CAPSULE PO SCH ×2 (08:39→17:48)
[2021-07-10] MEDS ORDERED: IODIXANOL 320MG/ML 100 ML BOTTLE IV ONE (14:10)
[2021-07-10] MEDS ORDERED: LIDOCAINE HCL 1% 30ML VIAL (10MG/ML) ONE (14:10)
[2021-07-10] MEDS ORDERED: CEFAZOLIN 1000MG PREMIX 50 ML IV ONE ×2 (14:14→14:24)
[2021-07-10] MEDS ORDERED: GENTAMICIN/NS IRRIGATION 500 ML IR ONE (14:24)
[2021-07-10] MEDS ORDERED: FENTANYL CITRATE/PF 50MCG/ML 2ML VIAL ONE (14:34)
[2021-07-10] MEDS ORDERED: MIDAZOLAM HCL 2 MG/2 ML VIAL ONE ×2 (14:35→15:51)
[2021-07-10] MEDS ORDERED: MIDAZOLAM HCL 5 MG/5 ML VIAL ONE (15:16)
[2021-07-10] MEDS ORDERED: PROPOFOL 200MG/20ML VIAL IV ONE (15:32)
[2021-07-10] MEDS ORDERED: GENTAMICIN SULF 40MG/ML 2ML VIAL ONE (15:54)
[2021-07-10] MEDS ORDERED: CEFAZOLIN 1000MG PREMIX 50 ML IV SCH (18:00)
[2021-07-10] MEDS ORDERED: CEFAZOLIN SODIUM 1000MG/VIAL IV SCH (22:00)
[2021-07-10] MEDS: ATORVASTATIN CALCIUM 40MG TABLET PO SCH (22:08)
[2021-07-10] MEDS: CEFAZOLIN 1000MG PREMIX 50 ML IV SCH (22:08)
[2021-07-10] MEDS: HYDRALAZINE 20MG/ML VIAL IV PRN (22:37)
[2021-07-11] VITALS (11 sets, daily range): BP systolic 97–135; BP diastolic 45–75
[2021-07-11] MEDS: CEFAZOLIN 1000MG PREMIX 50 ML IV SCH ×2 (05:28→16:08)
[2021-07-11] MEDS: SODIUM CHLORIDE 0.9% INJ 3ML FLUSH IVF SCH ×2 (05:28→13:20)
[2021-07-11] MEDS: DOCUSATE SODIUM 100MG CAPSULE PO SCH (08:52)
== END 2021-07-11 17:10 | disposition home or self-care (01) | DRG 243 ==
LOC: ER 17:00 → MICUSO 18:06 → 3WST 07-09 01:43
PROVIDERS: ADMIT Internal Medicine; ATTEND Internal Medicine
PROC: 0JH606Z Insertion of Pacemaker, Dual Chamber into Chest Subcutaneous Tissue and Fascia, Open Approach (ICD-10-PCS; principal; 2021-07-10)
PROC: 02HK3JZ Insertion of Pacemaker Lead into Right Ventricle, Percutaneous Approach (ICD-10-PCS; 2021-07-10)
PROC: 02H63JZ Insertion of Pacemaker Lead into Right Atrium, Percutaneous Approach (ICD-10-PCS; 2021-07-10)
DX: I49.5 Sick sinus syndrome (principal); I44.2 Atrioventricular block, complete; I25.10 Atherosclerotic heart disease of native coronary artery without angina pectoris; I16.0 Hypertensive urgency; M06.9 Rheumatoid arthritis, unspecified; I10 Essential (primary) hypertension; M54.50 Low back pain, unspecified; G89.29 Other chronic pain; I44.1 Atrioventricular block, second degree; E11.9 Type 2 diabetes mellitus without complications; Z20.822 Contact with and (suspected) exposure to COVID-19; F17.200 Nicotine dependence, unspecified, uncomplicated; Z79.899 Other long term (current) drug therapy; Z95.1 Presence of aortocoronary bypass graft; I25.2 Old myocardial infarction; Z86.73 Personal history of transient ischemic attack (TIA), and cerebral infarction without residual deficits
CPT/HCPCS: 33208; 36415; 71045; 75820; 80053; 83880; 84443; 84484; 85025; 86850; 86900; 87426; 93005; 93306; 99285; A4565; C1785; C1898; J0360; J0690; J1580; J1650; J2250; J2704; J3010; J3490; J7030; Q9967